=== PATIENT | female | born 1980 ===

== ENCOUNTER 2022-06-16 15:15 | Inpatient (IN) | payer OTHER ==
[~2022-06-16] VITALS: Ht 167.7 cm; Wt 95.7 kg
[2022-06-16] MEDS ORDERED: LACTATED RINGERS 1,000 ML IV SCH (19:30)
[2022-06-16] MEDS ORDERED: MINERAL OIL 30 ML UDC TOP PRN (19:30)
[2022-06-16 19:47] VITALS: BP 130/63
[2022-06-16] MEDS: CATHETER FLUSH 10 ML SYR IV SCH (19:54)
[2022-06-16] MEDS ORDERED: D5 LR IV SOLUTION 1,000 ML IV ONE (19:58)
[2022-06-16] MEDS ORDERED: LACTATED RINGERS 1,000 ML IV ONE (19:58)
[2022-06-16 20:01] LABS: BASOPHILS % (AUTO) 0 % (0-10); EOSINOPHILS % (AUTO) 0 % (0-10)
[2022-06-16 20:03] LABS: HEMATOCRIT 34 % (35-52); HEMOGLOBIN 11.5 g/dL (11.5-16.0); LYMPHOCYTES # (AUTO) 1.9 10^3/uL (1.0-4.0); LYMPHOCYTES % (AUTO) 20 % (12-44); MEAN CORPUSCULAR HEMOGLOBIN 30 pg (25-34); MEAN CORPUSCULAR HGB CONC 34 g/dL (32-36); MEAN CORPUSCULAR VOLUME 87 fL (80-99); MONOCYTES # (AUTO) 0.6 10^3/uL (0.0-1.0); MONOCYTES % (AUTO) 7 % (0-12); NEUTROPHILS # (AUTO) 6.7 10^3/uL (1.8-7.8); NEUTROPHILS % (AUTO) 72 % (42-75); PLATELET COUNT 135 10^3/uL (130-400); WHITE BLOOD COUNT 9.3 10^3/uL (4.3-11.0)
[2022-06-16] MEDS: D5 LR IV SOLUTION 1,000 ML IV SCH (20:03)
[2022-06-16] MEDS ORDERED: fentaNYL INJ 100 MCG/2 ML AMP IVP PRN (20:30)
[2022-06-16 23:30] VITALS: BP 130/75
[2022-06-17] VITALS (50 sets, daily range): BP systolic 97–147; BP diastolic 54–83
[2022-06-17] MEDS: D5 LR IV SOLUTION 1,000 ML IV SCH ×2 (03:43→11:21)
[2022-06-17] MEDS ORDERED: fentaNYL 2 mcg/ml BUPIVA 0.125 100 ML ONE (08:36)
[2022-06-17] MEDS ORDERED: LEVO50CA4 PO (08:39)
[2022-06-17] MEDS ORDERED: PNV91TAB6 PO (08:39)
--- NOTE | 2022-06-17 08:42 | History & Physical-OB ---
OB - Chief Complaint & HPI Date/Time Date of Admission: Date of Admission: Jun 16, 2022 at 19:07 Date seen by a Provider: Jun 17, 2022 Time Seen by a Provider: 08:25 Chief Complaint/History OB-Reason for Admission/Chief: Induction of Labor Hx : 3 Hx Para: 2 Expected Date of Delivery: Jun 20, 2022 Gestational Age in Weeks: 39 Gestational Age in Days: 4 Indication for induction: maternal discomfort History of Labs O+, antibody neg. HIV/HepB/RPR NR. GC/chlamydia neg. Subclinical hypothyroidism. 1 hour glucola elevated, 3 hour normal. GBS neg. Normal cell free DNA testing. Allergies and Home Medications Allergies Coded Allergies: No Known Drug Allergies (Unverified , 04/03/10) Patient Home Medication List Home Medication List Reviewed: Yes Levothyroxine Sodium (Levothyroxine) 50 Mcg Capsule, 50 MCG PO DAILY, (Reported) Entered as Reported by: WANDA DUFFY on 06/17/22838 Last Action: New Order Pnv95/Ferrous Fumarate/FA ( Vitamin Tablet) 28 Mg Iron-800 Mcg Tablet, 1 EACH PO DAILY, (Reported) Entered as Reported by: WANDA DUFFY on 06/17/22838 Last Action: New Order OB - History Hx of Present Care: Yes Ultrasounds: Normal mid trimester US Obstetrical Complications: None Medical Complications: Other (subclinical hypothyroidism, on levothyroxine) Information Induced Hypertension: No Maternal Gestational Diabetes: No Hemorrhage: No Obstetrical History Hx : 3 Hx Para: 2 Hx # Term Pregnancies: 2 Hx # Pregnancies: 0 Number of Living Children: 2 Hx Termination: No Hx Multiple Gestation: No Hx Ectopic : No Hx Stillbirth: No Hx Complication: No Hx Induced Hypertens: No Hx Maternal Gestational Diabet: No Hx Hemorrhage: No Delivery History Hx Dystocia: No Hx Forceps Assisted Delivery: No Hx Vacuum Extraction Assisted: No Hx Placenta Abnormality: No Hx Distress: No Hx Large For Gestational Age I: No Hx Small for Gestational Age I: No Hx Section: No Hx Vaginal Delivery Post C-Sec: No Hx Blood Disorders: No Adverse Rxn to Tranfusion: No Patient Past Medical History PMHx: Subclinical hypothyroidism with positive TPO antibodies SurgHx: Denies Social History/Family History Alcohol Use: Denies Use Recreational Drug Use: No Smoking Cessation: Never smoker Immunizations Influenza Vaccine Up-to-Date: No; Not Current Tetanus Booster (TDap): Less than 5yrs (04/08/2022) Rubella: immune RPR/VDRL: Negative GBS Status: Negative HBsAG: Negative OB - Admission Exam Physical Exam Vitals: Vital Signs 06/16/22 06/17/22 19:47 05:30 Temp 36.7 Pulse 75 Resp 18 B/P (MAP) 129/65 (86) Pulse Ox 98 O2 Delivery Room Air HEENT: NCAT Abdomen: Gravid Extremities: Normal Cervical Dilatation: 3cm Effacement: 75% Station: -3 Membranes: Intact (ruptured at time of exam without assistance) Amniotic Fluid: Thin Meconium Heart Rate: 140's Accelerations: Accelerations Present Decelerations: No Decelerations Short Term Variability: Present Pony Worker Variability: Average (6-25) Contractions on Admission: >10 Minutes Apart Carrillo Scoring Tool (Modified) Dilation (cm): 1-2cm (1) Effacement (%): 0-30% (0) Descent/Station: -3 (0) Cervix Consistency: Soft (2) Cervix Position: Posterior (0) Add 1 point for: Each previous vaginal delivery (1) (2) Carrillo Score: 3 Labs Laboratory Tests Test 06/16/22 19:54 Range/Units White Blood Count 9.3 4.3-11.0 10^3/uL Red Blood Count 3.89 3.80-5.11 10^6/uL Hemoglobin 11.5 11.5-16.0 g/dL Hematocrit 34 L 35-52 % Mean Corpuscular Volume 87 80-99 fL Mean Corpuscular Hemoglobin 30 25-34 pg Mean Corpuscular Hemoglobin Concent 34 32-36 g/dL Red Cell Distribution Width 14.1 10.0-14.5 % Platelet Count 135 130-400 10^3/uL Mean Platelet Volume 9.0-12.2 fL Immature Granulocyte % (Auto) 1 % Neutrophils (%) (Auto) 72 42-75 % Lymphocytes (%) (Auto) 20 12-44 % Monocytes (%) (Auto) 7 0-12 % Eosinophils (%) (Auto) 0 0-10 % Basophils (%) (Auto) 0 0-10 % Neutrophils # (Auto) 6.7 1.8-7.8 10^3/uL Lymphocytes # (Auto) 1.9 1.0-4.0 10^3/uL Monocytes # (Auto) 0.6 0.0-1.0 10^3/uL Eosinophils # (Auto) 0.0 0.0-0.3 10^3/uL Basophils # (Auto) 0.0 0.0-0.1 10^3/uL Immature Granulocyte # (Auto) 0.1 0.0-0.1 10^3/uL Percent Immature Platelet Fraction 18.4 H 0.0-7.6 % OB - Assessment/Plan/Diagnosis Assessment Admission Dx 39 weeks gestation Term intrauterine with elective induction of labor planned Subclinical hypothyroidism Advanced maternal age GBS negative Blood type O+ Rubella immune Admission Status: Inpatient Order (span 2 midnights) Reason for Inpatient Admission: Labor, delivery and course Plan Plan: Induction Induction Method: per Misoprostol Protocol (Carrillo score low on admit, received 2 doses of vaginal cytotec and is now progressing in labor without assistance, expectant management) WANDA DUFFY MD Jun 17, 2022 08:42
[2022-06-17] MEDS ORDERED: BUPIVACAINE 0.25% 30 ML (SENSORCAINE) VIAL ONE (09:04)
[2022-06-17] MEDS ORDERED: fentaNYL INJ 100 MCG/2 ML AMP ONE (09:04)
[2022-06-17] MEDS ORDERED: LACTATED RINGERS 1,000 ML IV ONE (09:45)
[2022-06-17] MEDS ORDERED: fentaNYL 2 mcg/ml BUPIVA 0.125 100 ML IV SCH (09:45)
[2022-06-17] MEDS ORDERED: NALOXONE 0.4 MG/ML 1 ML (NARCAN) VIAL IV PRN (09:45)
[2022-06-17] MEDS ORDERED: CATHETER FLUSH 10 ML SYR IV PRN (09:45)
[2022-06-17] MEDS: CATHETER FLUSH 10 ML SYR IV SCH (11:08)
[2022-06-17] MEDS ORDERED: OXYTOCIN PRE-MIX DRIP 500 ML IV ONE ×2 (11:19→16:01)
--- NOTE | 2022-06-17 12:52 | Labor Progress Note ---
Labor Progress Note Labor Progress Note Date Seen by Provider: Jun 17, 2022 Time Seen by Provider: 12:40 Subjective: Pt denies complaints. Is feeling comfortable with epidural. Objective: (Can we insert 24 hour vitals here?) Cervical exam: /- Consistency: soft Position: anterior Presentation: vertex heart tones: 130s beats per minute, moderate variability, reactive Tocometer: 3-4 ctx/10 minutes Assessment/Plan: Fausto Sandoval is a (41 /Para 3 / 2,Gestational Age (wks)39 here for induction of labor. Laboring spontaneously at this time after 2 doses of cytotec overnight. FSE/TOCO Expectant management Anesthesia: Epidural Anticipate vaginal delivery. Vitals - Labs Vital Signs - I&O Vital Signs Date Time Temp Pulse Resp B/P (MAP) Pulse Ox O2 Delivery O2 Flow Rate FiO2 06/17/22 11:00 81 20 103/66 (78) 97 Room Air 06/17/22 10:45 76 20 103/59 (74) 97 Room Air 06/17/22 10:30 72 20 121/71 (88) 98 Room Air 06/17/22 10:15 68 20 119/64 (82) 97 Room Air 06/17/22 10:00 78 20 123/72 (89) 97 Room Air 06/17/22 09:45 78 20 123/72 (89) 97 Room Air 06/17/22 09:39 90 20 118/83 (95) 98 Room Air 06/17/22 09:36 80 20 119/62 (81) 99 Room Air 06/17/22 09:33 81 20 117/58 (77) 99 Room Air 06/17/22 09:30 81 20 130/64 (86) 100 Room Air 06/17/22 09:27 95 20 136/65 (88) 100 Room Air 06/17/22 09:24 36.2 78 20 140/66 (90) 100 Room Air 06/17/22 09:21 75 20 132/62 (85) 100 Room Air 06/17/22 09:18 77 20 136/62 (86) 100 Room Air 06/17/22 09:15 97 20 132/70 (90) 100 Room Air 06/17/22 09:10 96 20 126/76 (93) 100 Room Air 06/17/22 09:00 82 20 137/73 (94) 100 Room Air 06/17/22 08:45 69 20 125/81 (96) 99 Room Air 06/17/22 08:30 86 20 137/76 (96) 100 Room Air 06/17/22 08:15 77 20 142/68 (92) 100 Room Air 06/17/22 08:00 36.7 76 20 100 Room Air 06/17/22 07:30 80 20 118/67 (84) Room Air 06/17/22 05:30 75 18 129/65 (86) 06/17/22 03:30 70 18 109/55 (73) 06/17/22 01:30 75 18 123/74 (90) 06/16/22 23:30 76 18 130/75 (93) 06/16/22 19:47 36.7 94 18 98 Room Air I & O 06/17/22 07:00 Intake Total 2000 ml Balance 2000 ml Labs Laboratory Tests 06/16/22 19:54: White Blood Count 9.3, Red Blood Count 3.89, Hemoglobin 11.5, Hematocrit 34L, Mean Corpuscular Volume 87, Mean Corpuscular Hemoglobin 30, Mean Corpuscular Hemoglobin Concent 34, Red Cell Distribution Width 14.1, Platelet Count 135, Mean Platelet Volume , Immature Granulocyte % (Auto) 1, Neutrophils (%) (Auto) 72, Lymphocytes (%) (Auto) 20, Monocytes (%) (Auto) 7, Eosinophils (%) (Auto) 0, Basophils (%) (Auto) 0, Neutrophils # (Auto) 6.7, Lymphocytes # (Auto) 1.9, Monocytes # (Auto) 0.6, Eosinophils # (Auto) 0.0, Basophils # (Auto) 0.0, Immature Granulocyte # (Auto) 0.1, Percent Immature Platelet Fraction 18.4H WANDA DUFFY MD Jun 17, 2022 12:52
[2022-06-17] MEDS: OXYTOCIN PRE-MIX DRIP 500 ML IV SCH ×2 (15:21→16:00)
--- NOTE | 2022-06-17 16:04 | OB Labor & Delivery Record ---
Vag Delivery Note Vag Delivery Note Date of Delivery: 06/17/22 Preoperative Diagnosis: Fausto Sandoval is a (40 /Para 3 / 2, Gestational Age (wks)39with 4 days Postoperative Diagnosis: Same Surgeon: WANDA DUFFY Wood Pile Driver Operator: Noelle Montero, OMS3 Anesthesia: Epidural Delivery Type: Spontaneous vaginal delivery Findings: Viable male infant, apgars 8/9, weight 3615 Lacerations: Right periurethral, second degree perineal Intact placenta with 3 vessel cord. No nuchal cord, body cord or shoulder dystocia Estimated Blood Loss: 250 ml Complications: None Condition: Stable Description of Procedure: The patient is a 41 year old female who presented for induction of labor. She was admitted and informed consent was obtained. Her labor course was unremarkable. She progressed to complete dilatation and began to push. She was then set up for delivery. The infant's head was delivered atraumatically in the TRAVIS position. The shoulders and remainder of the infant's body were then delivered without difficulty. Upon delivery, the was vigorous and placed on maternal chest. After a delay the cord was doubly clamped and cut and the infant was handed off to the pediatric staff. An intact placenta with 3-vessel cord delivered via Manjinder and there was found to be minimal bleeding.~ Vigorous fundal massage was performed and the fundus was found to be firm. IV oxytocin was given. Examination of the vagina and perineum revealed a right periurethral laceration repaired in simple running fashion and a second degree perineal laceration repaired in the usual fashion with 3-0 vicryl rapide suture. Following the repair, sponge, instrument and needle counts were correct. Mom and baby were both in stable condition in the labor suite. Vitals - Labs Vital Signs - I&O Vital Signs Date Time Temp Pulse Resp B/P (MAP) Pulse Ox O2 Delivery O2 Flow Rate FiO2 06/17/22 13:45 36.4 77 20 147/72 (97) 97 Room Air 06/17/22 13:30 75 20 118/74 (89) 97 Room Air 06/17/22 13:15 74 20 144/77 (99) 97 Room Air 06/17/22 13:00 75 20 120/67 (84) 97 Room Air 06/17/22 12:45 85 20 116/69 (85) 97 Room Air 10/12/22 12:30 77 20 112/70 (84) 97 Room Air 06/17/22 12:15 72 20 113/65 (81) 97 Room Air 06/17/22 12:00 70 20 111/64 (80) 96 Room Air 06/17/22 11:45 68 20 113/64 (80) 98 Room Air 06/17/22 11:30 74 20 121/79 (93) 96 Room Air 06/17/22 11:15 76 20 109/70 (83) 97 Room Air 06/17/22 11:00 81 20 103/66 (78) 97 Room Air 06/17/22 10:45 76 20 103/59 (74) 97 Room Air 06/17/22 10:30 72 20 121/71 (88) 98 Room Air 06/17/22 10:15 68 20 119/64 (82) 97 Room Air 06/17/22 10:00 78 20 123/72 (89) 97 Room Air 06/17/22 09:45 78 20 123/72 (89) 97 Room Air 06/17/22 09:39 90 20 118/83 (95) 98 Room Air 06/17/22 09:36 80 20 119/62 (81) 99 Room Air 06/17/22 09:33 81 20 117/58 (77) 99 Room Air 06/17/22 09:30 81 20 130/64 (86) 100 Room Air 06/17/22 09:27 95 20 136/65 (88) 100 Room Air 06/17/22 09:24 36.2 78 20 140/66 (90) 100 Room Air 06/17/22 09:21 75 20 132/62 (85) 100 Room Air 06/17/22 09:18 77 20 136/62 (86) 100 Room Air 06/17/22 09:15 97 20 132/70 (90) 100 Room Air 06/17/22 09:10 96 20 126/76 (93) 100 Room Air 06/17/22 09:00 82 20 137/73 (94) 100 Room Air 06/17/22 08:45 69 20 125/81 (96) 99 Room Air 06/17/22 08:30 86 20 137/76 (96) 100 Room Air 06/17/22 08:15 77 20 142/68 (92) 100 Room Air 06/17/22 08:00 36.7 76 20 100 Room Air 06/17/22 07:30 80 20 118/67 (84) Room Air 06/17/22 05:30 75 18 129/65 (86) 06/17/22 03:30 70 18 109/55 (73) 06/17/22 01:30 75 18 123/74 (90) 06/16/22 23:30 76 18 130/75 (93) 06/16/22 19:47 36.7 94 18 98 Room Air I & O 06/17/22 07:00 Intake Total 2000 ml Balance 2000 ml Labs Laboratory Tests 06/16/22 19:54: White Blood Count 9.3, Red Blood Count 3.89, Hemoglobin 11.5, Hematocrit 34L, Mean Corpuscular Volume 87, Mean Corpuscular Hemoglobin 30, Mean Corpuscular Hemoglobin Concent 34, Red Cell Distribution Width 14.1, Platelet Count 135, Mean Platelet Volume , Immature Granulocyte % (Auto) 1, Neutrophils (%) (Auto) 72, Lymphocytes (%) (Auto) 20, Monocytes (%) (Auto) 7, Eosinophils (%) (Auto) 0, Basophils (%) (Auto) 0, Neutrophils # (Auto) 6.7, Lymphocytes # (Auto) 1.9, Monocytes # (Auto) 0.6, Eosinophils # (Auto) 0.0, Basophils # (Auto) 0.0, Immature Granulocyte # (Auto) 0.1, Percent Immature Platelet Fraction 18.4H WANDA DUFFY MD Jun 17, 2022 16:04
[2022-06-17] MEDS ORDERED: BENZOCAINE/MENTHOL (DERMOPLAST) 56 ML CAN TP PRN (16:45)
[2022-06-17] MEDS ORDERED: WITCH HAZEL(TUCKS) 40 EA JAR TOP PRN (16:45)
[2022-06-17] MEDS ORDERED: DIBUCAINE 1% OINTMENT 30 GM TUBE TOP PRN (16:45)
[2022-06-17] MEDS: IBUPROFEN 600 MG (MOTRIN) TAB PO SCH ×2 (18:55→19:46)
[2022-06-17] MEDS: DOCUSATE SODIUM 100 MG (COLACE) CAP PO SCH (19:45)
[2022-06-17] MEDS ORDERED: CATHETER FLUSH 10 ML SYR IV SCH (22:00)
[2022-06-18] MEDS: IBUPROFEN 600 MG (MOTRIN) TAB PO SCH ×3 (02:01→18:45)
[2022-06-18 05:15] VITALS: BP 117/62
[2022-06-18] MEDS: ACETAMINOPHEN 500 MG TAB (TYLENOL) PO PRN ×2 (05:18→20:12)
[2022-06-18] MEDS ORDERED: ACETAMINOPHEN 500 MG TAB (TYLENOL) ONE (05:18)
[2022-06-18 06:02] LABS: BASOPHILS % (AUTO) 0 % (0-10); EOSINOPHILS % (AUTO) 1 % (0-10)
[2022-06-18 06:04] LABS: EOSINOPHILS # (AUTO) 0.1 10^3/uL (0.0-0.3); HEMATOCRIT 34 % (35-52); LYMPHOCYTES # (AUTO) 2.4 10^3/uL (1.0-4.0); LYMPHOCYTES % (AUTO) 19 % (12-44); MEAN CORPUSCULAR HEMOGLOBIN 30 pg (25-34); MEAN CORPUSCULAR HGB CONC 33 g/dL (32-36); MEAN CORPUSCULAR VOLUME 91 fL (80-99); MEAN PLATELET VOLUME 13.6 fL (9.0-12.2); MONOCYTES # (AUTO) 0.7 10^3/uL (0.0-1.0); MONOCYTES % (AUTO) 6 % (0-12); NEUTROPHILS # (AUTO) 9.5 10^3/uL (1.8-7.8); NEUTROPHILS % (AUTO) 74 % (42-75); PLATELET COUNT 102 10^3/uL (130-400); WHITE BLOOD COUNT 12.9 10^3/uL (4.3-11.0)
[2022-06-18 10:53] VITALS: BP 113/63
[2022-06-18] MEDS: PRENATAL VITAMIN 1 EA TAB PO SCH (10:55)
[2022-06-18] MEDS: DOCUSATE SODIUM 100 MG (COLACE) CAP PO SCH ×2 (10:55→20:12)
[2022-06-18] MEDS ORDERED: IBUP-844 PO (11:24)
--- NOTE | 2022-06-18 14:04 | Anesthesia-Regional Post-Op ---
Regional Patient Condition Mental Status: Alert, Oriented x3 Circulation: Same as Pre-Op Headache: Absent Sensation: Full Recovery Motor Block: Absent Post Op Complications Complications None Follow Up Care/Instructions Patient Instructions None needed. Anesthesia/Patient Condition Patient is doing well, no complaints, stable vital signs, no apparent adverse anesthesia problems. No complications reported per nursing. MARIE WHITLEY DO Jun 18, 2022 14:04
--- NOTE | 2022-06-18 14:30 | Discharge Summary ---
MILAN FRANKS 06/18/22 1430: Discharge Summary Hospital Course Problems Reviewed?: Yes Problems/Diagnosis: (1) Elective induction of labor planned Status: Acute (2) 39 weeks gestation of Status: Acute Hospital Course Date of Admission: Jun 16, 2022 at 19:07 Admission Diagnosis : Family Physician/Provider: Date of Discharge: 06/18/22 Discharge Diagnosis: Spontaneous Vaginal Delivery at 39 weeks 4 days Hospital Course: See Problem List. Pt sustained right periurethral tear and second degree perineal tear during delivery. Labs and Pending Lab Test: Laboratory Tests 06/18/22 05:35: White Blood Count 12.9H, Red Blood Count 3.72L, Hemoglobin 11.0L, Hematocrit 34L , Mean Corpuscular Volume 91, Mean Corpuscular Hemoglobin 30, Mean Corpuscular Hemoglobin Concent 33, Red Cell Distribution Width 13.9, Platelet Count 102L, Mean Platelet Volume 13.6H, Immature Granulocyte % (Auto) 1, Neutrophils (%) (Auto) 74, Lymphocytes (%) (Auto) 19, Monocytes (%) (Auto) 6, Eosinophils (%) (Auto) 1, Basophils (%) (Auto) 0, Neutrophils # (Auto) 9.5H, Lymphocytes # (Auto) 2.4, Monocytes # (Auto) 0.7, Eosinophils # (Auto) 0.1, Basophils # (Auto) 0.0, Immature Granulocyte # (Auto) 0.1, Percent Immature Platelet Fraction 20.6H Home Meds Active Ibu (Ibuprofen) 600 Mg Tablet 600 Mg PO Q6HR PRN Reported Vitamin Tablet (Pnv95/Ferrous Fumarate/FA) 28 Mg Iron-800 Mcg Tablet 1 Each PO DAILY Assessment/Pt DC Instructions Follow up with Dr. Agustin in 6 weeks Discharge Diet: No Restrictions Activity as Tolerated: Yes Discharge Physical Examination Allergies: Coded Allergies: No Known Drug Allergies (Unverified , 04/03/10) Vitals & I&Os Laboratory Tests Test 06/16/22 19:54 06/18/22 05:35 Range/Units White Blood Count 9.3 12.9 H 4.3-11.0 10^3/uL Red Blood Count 3.89 3.72 L 3.80-5.11 10^6/uL Hemoglobin 11.5 11.0 L 11.5-16.0 g/dL Hematocrit 34 L 34 L 35-52 % Mean Corpuscular Volume 87 91 80-99 fL Mean Corpuscular Hemoglobin 30 30 25-34 pg Mean Corpuscular Hemoglobin Concent 34 33 32-36 g/dL Red Cell Distribution Width 14.1 13.9 10.0-14.5 % Platelet Count 135 102 L 130-400 10^3/uL Mean Platelet Volume 13.6 H 9.0-12.2 fL Immature Granulocyte % (Auto) 1 1 % Neutrophils (%) (Auto) 72 74 42-75 % Lymphocytes (%) (Auto) 20 19 12-44 % Monocytes (%) (Auto) 7 6 0-12 % Eosinophils (%) (Auto) 0 1 0-10 % Basophils (%) (Auto) 0 0 0-10 % Neutrophils # (Auto) 6.7 9.5 H 1.8-7.8 10^3/uL Lymphocytes # (Auto) 1.9 2.4 1.0-4.0 10^3/uL Monocytes # (Auto) 0.6 0.7 0.0-1.0 10^3/uL Eosinophils # (Auto) 0.0 0.1 0.0-0.3 10^3/uL Basophils # (Auto) 0.0 0.0 0.0-0.1 10^3/uL Immature Granulocyte # (Auto) 0.1 0.1 0.0-0.1 10^3/uL Percent Immature Platelet Fraction 18.4 H 20.6 H 0.0-7.6 % Syphilis Serology Non-Reactive Non-Reactive General Appearance: No Apparent Distress, WD/WN HEENT: PERRL/EOMI Respiratory: Chest Non Tender, Lungs Clear, Normal Breath Sounds, No Accessory Muscle Use, No Respiratory Distress Cardiovascular: Regular Rate, Rhythm, No Edema, No Murmur, Normal Peripheral Pulses Gastrointestinal: Normal Bowel Sounds, Non Tender (patient reported some cramping pain in lower abdomen) Extremity: Swelling (some swelling bilateral feet pt states this has occurred since month 8 of ) Skin: Normal Color, Warm/Dry Neurologic/Psychiatric: Alert, Oriented x3 Discharge Summary Date of Admission Jun 16, 2022 at 19:07 Date of Discharge Discharge Date: Jun 18, 2022 Supervisory-Addendum Brief Verification & Attestation Participated in pt care: history, MDM, physical Personally performed: exam, history, MDM, supervision of care Care discussed with: Medical Student Procedures: supervised ANA AGUSTIN MD 06/18/22 1550: Discharge Summary Discharge Physical Examination Allergies: Coded Allergies: No Known Drug Allergies (Unverified , 04/03/10) Supervisory-Addendum Brief Verification & Attestation Verification and Attestation of Medical Student E/M Service A medical student performed and documented this service in my presence. I reviewed and verified all information documented by the medical student and made modifications to such information, when appropriate. I personally performed the physical exam and medical decision making. Ana Agustin, Jun 18, 2022,15:50 MILAN FRANKS Jun 18, 2022 14:30 ANA AGUSTIN MD Jun 18, 2022 15:50
[2022-06-18 20:12] VITALS: BP 109/85
[2022-06-19 01:33] VITALS: BP 115/71
[2022-06-19] MEDS: IBUPROFEN 600 MG (MOTRIN) TAB PO SCH ×2 (01:33→07:49)
[2022-06-19] MEDS: PRENATAL VITAMIN 1 EA TAB PO SCH (07:49)
[2022-06-19 08:14] VITALS: BP 119/65
[2022-06-19] MEDS: DOCUSATE SODIUM 100 MG (COLACE) CAP PO SCH (09:10)
[2022-06-19 11:19] VITALS: BP 119/65
== END 2022-06-19 11:25 | disposition home or self-care (01) | DRG 807 ==
LOC: LDRP 19:07
PROVIDERS: ADMIT Family Medicine; ATTEND Family Medicine
PROC: 10E0XZZ Delivery of Products of Conception, External Approach (ICD-10-PCS; principal; 2022-06-17)
PROC: 0KQM0ZZ Repair Perineum Muscle, Open Approach (ICD-10-PCS; 2022-06-17)
PROC: 3E033VJ Introduction of Other Hormone into Peripheral Vein, Percutaneous Approach (ICD-10-PCS; 2022-06-17)
DX: O99.284 Endocrine, nutritional and metabolic diseases complicating childbirth (principal); Z37.0 Single live birth; Z3A.39 39 weeks gestation of pregnancy; E03.8 Other specified hypothyroidism; Z79.890 Hormone replacement therapy; O70.1 Second degree perineal laceration during delivery
CPT/HCPCS: 36415; 85025; 86780; 86850; 86900; 86901